=== PATIENT | female | born 1970 | race Caucasian/White ===

== ENCOUNTER 2017-04-16 19:24 | Emergency (ER) | payer MEDICAID ==
[~2017-04-16] VITALS: Ht 152.4 cm; Wt 53.5 kg
[~2017-04-16 19:24] MED LIST: ACET500C5 PO; IBUP-1542 PO; PREN-39 PO; PRENAT PO
[2017-04-16 19:29] VITALS: Ht 152.4 cm; Wt 53.5 kg
[2017-04-16] MEDS ORDERED: METOCLOPRAMIDE 10 MG INJ IV STA (21:35)
[2017-04-16] MEDS ORDERED: SOD CHLORIDE 0.9% 1,000 ML IV STA (21:35)
[2017-04-16] MEDS ORDERED: DIPHENHYDRAMINE 50 MG INJ IV ONE (22:00)
[2017-04-16] MEDS ORDERED: ACET325T33 PO (22:16)
--- NOTE | 2017-04-16 22:33 | ERD ---
ER Documentation Chief Complaint Date/Time DATE: 04/16/17 TIME: 22:32 Chief Complaint c/o headache x3 days, no n/v noted HPI 46-year-old female presents the emergency department complaining of a bandlike headache for the past 2 days. Patient rates the pain moderate in severity. She states that she has been under a lot of stress lately. She denies any nausea, vomiting, diarrhea. She states that she took ibuprofen earlier ROS All systems reviewed and are negative except as per history of present illness. Medications Home Meds Active Scripts Acetaminophen* (Tylenol*) 325 Mg Tablet, 2 TAB PO Q6 Y for PAIN AND OR ELEVATED TEMP, #20 TAB Prov:VY VENTURA PA-C 04/16/17 Acetaminophen* (Tylophen*) 500 Mg Capsule, 1 CAP PO Q6H Y for PAIN AND OR ELEVATED TEMP, #20 CAP Prov:GRABIEL BOSCH PA-C 08/15/16 Multivit/Min/Fol Ac/Iron/Pren* ( S*) 1 Tab Tab, 1 TAB PO DAILY for 30 Days, TAB Prov:DENISSE MOTA 08/13/16 Ibuprofen* (Motrin*) 600 Mg Tab, 600 MG PO Q6, #20 TAB 0 Refills Prov:ANTONY HARTMAN MD 03/24/15 Reported Medications Vits W-Ca,Fe,Fa(<1MG) ( Vitamins) 1 Tab Tablet, 1 TAB PO DAILY for 7 Days 02/24/15 Allergies Allergies: Coded Allergies: No Known Drug Allergy (Unverified Allergy, Unknown, 04/16/17) PMhx/Soc Medical and Surgical Hx: pt denies Medical Hx, pt denies Surgical Hx History of Surgery: No Anesthesia Reaction: No Hx Neurological Disorder: No Hx Respiratory Disorders: No Hx Cardiac Disorders: No Hx Psychiatric Problems: No Hx Miscellaneous Medical Probl: No Hx Alcohol Use: No Hx Substance Use: No Hx Tobacco Use: No Smoking Status: Never smoker Physical Exam Vitals Vital Signs Date Time Temp Pulse Resp B/P Pulse Ox O2 Delivery O2 Flow Rate FiO2 04/16/17 19:29 98.5 59 16 114/55 98 Physical Exam GENERAL: well-developed/well-nourished, in no apparent distress, non-toxic appearing HENT: NC/AT, bilateral tympanic membrane is normal with good cone of light, nares patent, oropharynx clear without exudates EYES: Conjunctiva normal, PERRLA, EOMI, no nystagmus noted NECK: Supple, no lymphadenopathy PULM: CTA bilaterally, no rales, rhonchi, or wheezing heard CV: Normal S1S2, RRR, good capillary refill GI: Soft, non-distended, normal bowel sounds, non-tender BACK: No midline tenderness, no masses, No CVAT EXT: No clubbing, cyanosis, or edema NEURO: Alert and orientated to person, place, and time. CN II-IIX intact. Gait and coordination were normal. 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 Likely tension. My differential diagnoses include tension, migraine, and cluster headache, overuse medication headache, subarachnoid hemorrhage, meningitis, stroke. Pain relief was given in the ED with some improvement. Neurology exam was normal at this time I believe a CT of the head is not warranted, patient likely has a tension headache. IV access established, patient was given Benadryl and Reglan and she had some improvement. DISPOSITION: hemodynamically stable and neurovascularly intact. Prescriptions tylenol were given. Discussed to follow up with a primary care physician in the next couple days. Return to the ER if condition worsens or not improving as expected. Patient agreed and understood this plan. Departure Diagnosis: Primary Impression: Headache Condition: Stable Patient Instructions: Tension Headaches, Self-Care for Headaches Referrals: NO PRIMARY,CARE PHYSICIAN (PCP) Additional Instructions: Visite a sauceda mdcortney haley para un EXAMEN.Regrese a estas instalaciones si no se mejora kareem esperbamos o kareem le dijimos. [facility] toda la medicina janis y kareem se le indic. Regrese a estas instalaciones si no se mejora kareem esperbamos o kareem le dijimos. VY VENTURA PA-C Apr 16, 2017 22:33
== END 2017-04-16 22:22 | disposition home or self-care (01) ==
LOC: FTE 19:24
DX: R51 Headache (principal)
CPT/HCPCS: J1200; J2765; J7030; 36415; 96374; 96375

== ENCOUNTER 2017-06-28 17:16 | Emergency (ER) | payer MEDICAID ==
[~2017-06-28] VITALS: Ht 152.4 cm; Wt 53.0 kg
[~2017-06-28 17:16] MED LIST changes: +ACET325T33 PO
[2017-06-28 17:17] VITALS: Ht 152.4 cm; Wt 53.0 kg
[2017-06-28] MEDS ORDERED: DIPHENHYDRAMINE 50 MG INJ IV STA (17:52)
[2017-06-28] MEDS ORDERED: SOD CHLORIDE 0.9% 1,000 ML IV STA (17:52)
[2017-06-28] MEDS ORDERED: METOCLOPRAMIDE 10 MG INJ IV STA (17:52)
[2017-06-28] MEDS ORDERED: KETOROLAC 30 MG INJ IV STA (17:52)
--- NOTE | 2017-06-28 17:52 | ERD ---
ER Documentation Chief Complaint Chief Complaint headache x 4 days HPI This 47-year-old female presents to emergency department with a 3 day hx of WIGGINS behind right eye, radiating to frontal skull. pressure in maxillary and frontal sinus, with diziness , denies n/v/ change in vision of behavior ROS All systems reviewed and are negative except as per history of present illness. Medications Home Meds Active Scripts Acetaminophen* (Tylenol*) 325 Mg Tablet, 2 TAB PO Q6 Y for PAIN AND OR ELEVATED TEMP, #20 TAB Prov:VY VENTURA PA-C 04/16/17 Acetaminophen* (Tylophen*) 500 Mg Capsule, 1 CAP PO Q6H Y for PAIN AND OR ELEVATED TEMP, #20 CAP Prov:GRABIEL BOSCH PA-C 08/15/16 Multivit/Min/Fol Ac/Iron/Pren* ( S*) 1 Tab Tab, 1 TAB PO DAILY for 30 Days, TAB Prov:DENISSE MOTA 08/13/16 Ibuprofen* (Motrin*) 600 Mg Tab, 600 MG PO Q6, #20 TAB 0 Refills Prov:ANTONY HARTMAN MD 03/24/15 Reported Medications Vits W-Ca,Fe,Fa(<1MG) ( Vitamins) 1 Tab Tablet, 1 TAB PO DAILY for 7 Days 02/24/15 Allergies Allergies: Coded Allergies: No Known Drug Allergy (Unverified Allergy, Unknown, 04/16/17) PMhx/Soc History of Surgery: No Anesthesia Reaction: No Hx Neurological Disorder: No Hx Respiratory Disorders: No Hx Cardiac Disorders: No Hx Psychiatric Problems: No Hx Miscellaneous Medical Probl: No Hx Alcohol Use: No Hx Substance Use: No Hx Tobacco Use: No Physical Exam Vitals Vital Signs Date Time Temp Pulse Resp B/P Pulse Ox O2 Delivery O2 Flow Rate FiO2 06/28/17 17:17 99.2 73 18 113/63 96 Vitals stable, triage notes reviewed Physical Exam Const: Well-nourished, well-appearing, obviously not feeling well 47-year- old female in no acute distress Head: Atraumatic Eyes: Conjunctiva, injected, watery ENT: Bilateral tympanic membranes retracted, nasal mucosa erythematous, turbinates +3 with mucus, maxillary sinus pain to palpation Neck: Full range of motion..~ No meningismus. Resp: Clear to auscultation bilaterally, no rales wheezes or rhonchi Cardio: Abd: Skin: Back: Ext: Neuro: M/S: Alert and oriented Face: EOMI, face and pharynx with normal sensation and function Motor: Normal strength throughout Sensation: Normal sensation throughout Speech: Normal Cerebel: Normal coordination Normal gait Normal finger to nose Psych: Normal Mood and Affect Results 24 hrs Current Medications Medications (Trade) Dose Ordered Sig/Catherine Route PRN Reason Start Time Stop Time Status Last Admin Dose Admin Sodium Chloride (NS) 1,000 ml @ 1,000 mls/hr Q1H STAT IV 06/28/17 17:52 06/28/17 18:51 DC 06/28/17 17:52 Metoclopramide HCl (Reglan) 10 mg ONCE STAT IV 06/28/17 17:52 06/28/17 17:55 DC 06/28/17 18:58 Ketorolac Tromethamine (Toradol) 15 mg ONCE STAT IV 06/28/17 17:52 06/28/17 17:55 DC 06/28/17 18:59 Diphenhydramine HCl (Benadryl) 25 mg ONCE STAT IV 06/28/17 17:52 06/28/17 17:55 DC 06/28/17 18:58 Procedures/MDM This pleasant 47-year-old female presents to emergency department for evaluation of headache, sinus pain, fatigue, symptoms started 3 days ago, is worse now than at onset, history of rhinorrhea the previous week suspected allergies. Patient denies thunderclap headache or knowing the exact time headache started, emergency room course today includes history and physical exam , headache treatment with normal saline, 15 mg IV Toradol, 10 mg IV Reglan, and 25 mg IV Benadryl. Patient reassessed after several hours sleeping, reports improvement of symptoms. Plan to discharge home with amoxicillin for suspected sinusitis with headache, Flonase nasal spray, and ibuprofen 600 mg 1 tab p.o. every 6 hours as needed headache, return to emergency room if symptoms fail to improve as anticipated, follow-up with primary physician for treatment of chronic sinusitis, headaches. Patient is stable with no new complaints during ER course, clinically there is no current evidence to suggest meningitis, sepsis , TIA, subarachnoid bleed, intracranial mass, mastoiditis, or any other emergent condition appearing to require further evaluation or hospitalization. I feel the patient is stable for discharge at this time. I have discussed results, examination findings, the treatment plan with the patient and family present prior to discharge. Indications for emergent reevaluation, side effects of medication were also discussed. All questions were answered. Patient verbalizes understanding and agrees with plan of care. Departure Diagnosis: Primary Impression: Sinusitis Sinusitis location: maxillary Chronicity: acute Recurrence: not specified as recurrent Qualified Code: J01.00 - Acute maxillary sinusitis, recurrence not specified Additional Impression: Sinus headache Condition: Good Patient Instructions: Acute Sinusitis, Sinus Headache Additional Instructions: Thank you for for coming to [facility] for your care today. Please ask your nurse or provider if you have questions about your care today and do not leave until all your questions have been answered. Please use any medications given as directed and follow-up with your doctor (or the doctor you were referred to) in the next 2-3 days. If you do not have a primary care doctor you may follow up at the [facility] (listed below). You may also use motrin and tylenol as needed for fever and/or pain unless instructed otherwise by your provider or nurse. Indications for more urgent follow-up have been discussed, but you may return to the Emergency Department at ANY time for any worrisome or worsening symptoms. If you have abdominal pain, please know that no test or exam you received is perfect and you should follow up within 8 hours for continued pain. If you had any imaging studies today, such as an X-Ray or CT Scan, these studies will be reviewed later by a radiologist. You will be called if there are important findings that were not identified today, so make sure the contact information you provided at registration is correct. If you received any narcotic pain control medicine today, such as Vicodin, Morphine or Dilaudid, your coordination and judgment may be affected for a number of hours. Please do not drive or operate heavy machinery, and you may want someone to assist you at home. If you were given a prescription for narcotic medication, be aware that it is very addictive- use sparingly and only if necessary. GREGORIO KAYE Jun 28, 2017 17:52
[2017-06-28] MEDS ORDERED: FLUT9.9S NASAL (22:44)
[2017-06-28] MEDS ORDERED: AMOX500C2 PO (22:44)
[2017-06-28] MEDS ORDERED: IBUP-1542 PO (22:46)
[2017-06-28 22:50] VITALS: BP 122/73; PULSE 69; RESP 18; TEMP 98.8
== END 2017-06-28 22:51 | disposition home or self-care (01) ==
LOC: FTE 17:16
DX: J01.00 Acute maxillary sinusitis, unspecified (principal)
CPT/HCPCS: 96374; 96375; J1200; J1885; J2765; J7030; Z7502

== ENCOUNTER 2017-07-01 08:19 | Emergency (ER) | payer MEDICAID ==
[~2017-07-01] VITALS: Ht 154.9 cm; Wt 52.0 kg
[~2017-07-01 08:19] MED LIST changes: +AMOX500C2 PO; +FLUT9.9S NASAL
[2017-07-01 08:20] VITALS: Ht 154.9 cm; Wt 52.0 kg
[2017-07-01] MEDS ORDERED: KETOROLAC 30 MG INJ IM STA (09:12)
[2017-07-01] MEDS ORDERED: KETOROLAC 30 MG INJ IV STA (09:20)
[2017-07-01] MEDS ORDERED: METOCLOPRAMIDE 10 MG INJ IV ONE (09:30)
[2017-07-01] MEDS ORDERED: DIPHENHYDRAMINE 50 MG INJ IV ONE (09:30)
[2017-07-01] MEDS ORDERED: SOD CHLORIDE 0.9% 1,000 ML IV ONE (09:30)
[2017-07-01 12:32] VITALS: BP 128/68; PULSE 85; RESP 18
--- NOTE | 2017-07-01 14:49 | ERD ---
ER Documentation Chief Complaint Chief Complaint HEADACHE AND FEELS DIZZY SINCE FRIDAY HPI This is a 47-year-old female presenting to emerge department for right-sided headache 6 days. Patient was seen last week with same symptoms. Patient was prescribed amoxicillin for possible sinusitis. Patient states she just started amoxicillin yesterday. Patient continues to have right-sided headache. Headache is nonradiating. Patient denies this being the worst headache she is ever had. No vision changes or vision loss. No photophobia or diplopia. No weakness or fatigue. No numbness or tingling. No change in mood or behavior. ROS All systems reviewed and are negative except as per history of present illness. Medications Home Meds Active Scripts Ibuprofen* (Motrin*) 600 Mg Tab, 600 MG PO Q6, #30 TAB Prov:MIKKI,GREGORIO 06/28/17 Fluticasone Propionate (Flonase Allergy Relief) 9.9 Ml [place].susp, 1 SPRAY NASAL BID, #1 BOTTLE TO EACH NOSTRIL Prov:MIKKI,GREGORIO 06/28/17 Amoxicillin* (Amoxicillin*) 500 Mg Cap, 500 MG PO TID for 10 Days, CAP Prov:MIKKI,GREGORIO 06/28/17 Acetaminophen* (Tylenol*) 325 Mg Tablet, 2 TAB PO Q6 Y for PAIN AND OR ELEVATED TEMP, #20 TAB Prov:VY VENTURA PA-C 04/16/17 Acetaminophen* (Tylophen*) 500 Mg Capsule, 1 CAP PO Q6H Y for PAIN AND OR ELEVATED TEMP, #20 CAP Prov:GRABIEL BOSCH PA-C 08/15/16 Multivit/Min/Fol Ac/Iron/Pren* ( S*) 1 Tab Tab, 1 TAB PO DAILY for 30 Days, TAB Prov:DENISSE MOTA 08/13/16 Ibuprofen* (Motrin*) 600 Mg Tab, 600 MG PO Q6, #20 TAB 0 Refills Prov:ANTONY HARTMAN MD 03/24/15 Reported Medications Vits W-Ca,Fe,Fa(<1MG) ( Vitamins) 1 Tab Tablet, 1 TAB PO DAILY for 7 Days 02/24/15 Allergies Allergies: Coded Allergies: No Known Drug Allergy (Unverified Allergy, Unknown, 04/16/17) PMhx/Soc Medical and Surgical Hx: pt denies Medical Hx, pt denies Surgical Hx History of Surgery: No Anesthesia Reaction: No Hx Neurological Disorder: No Hx Respiratory Disorders: No Hx Cardiac Disorders: No Hx Psychiatric Problems: No Hx Miscellaneous Medical Probl: No Hx Alcohol Use: No Hx Substance Use: No Hx Tobacco Use: No Smoking Status: Never smoker Physical Exam Vitals Vital Signs Date Time Temp Pulse Resp B/P Pulse Ox O2 Delivery O2 Flow Rate FiO2 07/01/17 12:32 85 18 128/68 99 Room Air 07/01/17 08:20 98.0 77 19 107/59 97 Physical Exam Const: No acute distress, alert Head: Atraumatic Eyes: Normal Conjunctiva, PERRL, EOMs intact ENT: Normal External Ears, Nose and Mouth. Neck: Full range of motion..~ No meningismus. Resp: Clear to auscultation bilaterally. No wheezing, rhonchi or crackles. No stridor or labored breathing. No intercostal retractions. Cardio: Regular rate and rhythm, no murmurs Abd: Soft, non tender, non distended. Normal bowel sounds Skin: No petechiae or rashes Back: No midline or flank tenderness Ext: No cyanosis, or edema Neur: Awake and alert Psych: Normal Mood and Affect Results 24 hrs Current Medications Medications (Trade) Dose Ordered Sig/Catherine Route PRN Reason Start Time Stop Time Status Last Admin Dose Admin Sodium Chloride (NS) 1,000 ml @ 1,000 mls/hr Q1H ONCE IV 07/01/17 09:30 07/01/17 10:29 DC 07/01/17 09:38 Ketorolac Tromethamine (Toradol) 30 mg ONCE STAT IM 07/01/17 09:12 07/01/17 09:21 DC Metoclopramide HCl (Reglan) 10 mg ONCE ONCE IV 07/01/17 09:30 07/01/17 09:31 DC 07/01/17 09:38 Diphenhydramine HCl (Benadryl) 25 mg ONCE ONCE IV 07/01/17 09:30 07/01/17 09:31 DC 07/01/17 09:37 Ketorolac Tromethamine (Toradol) 30 mg ONCE STAT IV 07/01/17 09:20 07/01/17 09:21 DC 07/01/17 09:38 Procedures/MDM MDM: This is a 47-year-old female presenting to the emergency department for right-sided headache 6 days. No fevers or chills. No diplopia, loss of vision or blurry vision. No photophobia. No trauma to head or fall. No loss of consciousness. No nausea or vomiting. No confusion or altered mental status. Patient given Reglan, Benadryl and Toradol while in the ED. patient also given 1 L IV fluid bolus of normal saline. Upon reassessment of patient, patient is asleep. Upon awakening, states pain has improved significantly. Patient denies ataxic gait, slurred speech, numbness of the face or body, weakness, clumsiness, or incoordination. Low suspicion for CVA, TIA, meningitis, subdural hematoma, intracranial hemorrhage or mass. Differential diagnosis includes but not limited to tension headache, migraine headache, cluster headache, sinus headache, sinusitis, trigeminal neuralgia, herpes zoster and postherpetic neuralgia. Patient is appropriate for outpatient management will be given prescription for ibuprofen. Instructed patient to follow-up with primary care provider in the next 2-3 days for reassessment. Resources provided. Return to ED for any high fever, chest pain, difficulty breathing, shortness breath, wheezing, vomiting, diarrhea, abdominal pain or any new or worsening symptoms. Patient verbalizes understanding. All questions answered at discharge. Nepalese translation use during this encounter. Disclaimer: Inadvertent spelling and grammatical errors are likely due to EHR/ dictation software use and do not reflect on the overall quality of patient care. Also, please note that the electronic time recorded on this note does not necessarily reflect the actual time of the patient encounter. Departure Diagnosis: Primary Impression: Headache Headache type: unspecified Headache chronicity pattern: acute headache Intractability: not intractable Qualified Code: R51 - Acute nonintractable headache, unspecified headache type Condition: Stable Patient Instructions: Self-Care for Headaches Referrals: [facility] Usted se castro hecho un examen mdico de control que le indica que no est en megan condicin que requiera tratamiento urgente en el Departamento de Emergencia. Un estudio ms profundo y el tratamiento de sauceda condicin pueden esperar sin ningn riesgo hasta que usted sea atendida/o en el consultorio de sauceda mdico o megan cl maría elena. Es responsabilidad suya arreglar megan deysi para el seguimiento del duncan. MANEJO DE CONDICIONES NO URGENTES EN EL FUTURO 1) Si usted tiene un mdico de atencin primaria: Usted debera llamar a sauceda mdico de atencin primaria antes de venir al departamento de emergencia. Despus de las horas de consultorio, sauceda doctor o sauceda asociado/a est disponible por telfono. El mdico o enfermero de sonali en el servicio telefnico puede asesorarle por angel luis medio para atender el problema, o duncan contrario se puede programar megan deysi. 2) Si usted no tiene un mdico de atencin primaria: Llame al mdico o clnica de referencia que aparece abajo eduardo las horas de consultorio para hacer megan deysi para que le vean. CLINICAS: [facility] [phone] [facility] [phone] [address] [facility]. [facility] [phone] [facility] [place] [id number] [phone] [facility] [place] [id number] [phone] [facility]. [phone] [facility] () Usted se castro hecho un examen mdico de control que le indica que no est en megan condicin que requiera tratamiento urgente en el Departamento de Emergencia. Un estudio ms profundo y el tratamiento de sauceda condicin pueden esperar sin ningn riesgo hasta que usted sea atendida/o en el consultorio de sauceda mdico o megan cl maría elena. Es responsabilidad suya arreglar megan deysi para el seguimiento del duncan. MANEJO DE CONDICIONES NO URGENTES EN EL FUTURO 1) Si usted tiene un mdico de atencin primaria: Usted debera llamar a sauceda mdico de atencin primaria antes de venir al departamento de emergencia. Despus de las horas de consultorio, sauceda doctor o sauceda asociado/a est disponible por telfono. El mdico o enfermero de sonali en el servicio telefnico puede asesorarle por angel luis medio para atender el problema, o duncan contrario se puede programar megan deysi. 2) Si usted no tiene un mdico de atencin primaria: Llame al mdico o condado institucions de referencia que aparece abajo eduardo las horas de consultorio para hacer megan deysi para que le vean. SI USTED NO PUEDE PAGAR PARA LENA UN MEDICO puede ir a: [facility] [address] [place] [address] [facility] [address] [place] [address] [facility] [address] [place] [address] [facility] [address] [place], [place] [id number] Additional Instructions: Llame al doctor MAANA y suzanne megan DEYSI PARA DENTRO DE 2-3 RODRIGUES.Dgale a la secretaria que nosotros le instruimos hacer esta deysi.Avise o llame si sauceda condicin se empeora antes de la deysi. Regresa aqui si peor o no mejor. Vuelva a Ed para cualquier fiebre ever, dolor en el pecho, dificultad para respirar, respiracin entrecortada, sibilancias, vmitos, diarrea, dolor abdominal o cualquier sntoma nuevo o empeoramiento. HAKAN CHAVEZ NP Jul 01, 2017 14:49
== END 2017-07-01 12:32 | disposition home or self-care (01) ==
LOC: FTE 08:19
DX: R51 Headache (principal)
CPT/HCPCS: 96374; 96375; J1200; J1885; J2765; J7030; Z7502

== ENCOUNTER 2017-09-23 09:52 | Emergency (ER) | END 2017-09-23 12:15 | disposition home or self-care (01) ==

== ENCOUNTER 2017-12-02 17:24 | Emergency (ER) | END 2017-12-02 22:23 | disposition home or self-care (01) ==

== ENCOUNTER 2018-06-13 15:22 | Emergency (ER) | END 2018-06-13 17:47 | disposition home or self-care (01) ==